=== PATIENT | female | born 1990 | race African-American/Black ===

== ENCOUNTER 2017-05-23 01:00 | Emergency (ER) | payer MEDICAID ==
[~2017-05-23] VITALS: Ht 167.6 cm; Wt 147.5 kg
[2017-05-23 01:01] VITALS: BP 137/78; PULSE 67; RESP 18; TEMP 98.1; O2SAT 100
--- NOTE | 2017-05-23 02:42 | PD ---
HPI Chief Complaint: Abdominal Pain Time Seen by Provider: 02:40 Travel History International Travel<30 days: No Contact w/Intl Traveler<30days: No Traveled to known affect area: No History of Present Illness HPI C/O LOWER ABD CRAMPY DISCOMFORT, NONRAD, SHARP, /10, NO ALLEVIATING OR AGGRAVATING FACTORS...., NO FEVER/N/V/D/CASTILLO/CP AT THIS POINT. ALL: NKDA PMHX: ASTHMA PSHX: 4 C SECTIONS, BTL PFSH Past Medical History Asthma: Yes Diminished Hearing: No Immunizations Current: Yes ?: Not Tubal Ligation: Yes Past Surgical History Section: Yes (X4) Tonsillectomy: Yes Social History Alcohol Use: No Tobacco Use: No Substance Use: No Allergies-Medications (Allergen,Severity, Reaction): Coded Allergies: No Known Allergies (Unverified , 05/23/17) Reported Meds & Prescriptions Reported Meds & Active Scripts Active Zofran Odt (Ondansetron Odt) 4 Mg Tab 4 Mg SL Q6HR PRN Ultram (Tramadol HCl) 50 Mg Tab 50 Mg PO Q4H PRN Review of Systems Except as stated in HPI: all other systems reviewed are Neg Gastrointestinal: Positive: Abdominal Pain Physical Exam Narrative GENERAL: SKIN: Warm and dry. HEAD: Atraumatic. Normocephalic. EYES: Pupils equal and round. No scleral icterus. No injection or drainage. ENT: No nasal bleeding or discharge. Mucous membranes pink and moist. NECK: Trachea midline. No JVD. CARDIOVASCULAR: Regular rate and rhythm. RESPIRATORY: No accessory muscle use. Clear to auscultation. Breath sounds equal bilaterally. GASTROINTESTINAL: Abdomen soft, non-tender, nondistended. MUSCULOSKELETAL: Extremities without clubbing, cyanosis, or edema. No obvious deformities. NEUROLOGICAL: Awake and alert. No obvious cranial nerve deficits. Motor grossly within normal limits. Five out of 5 muscle strength in the arms and legs. Normal speech. PSYCHIATRIC: Appropriate mood and affect; insight and judgment normal. Data Data Last Documented VS Vital Signs Date Time Temp Pulse Resp B/P (MAP) Pulse Ox O2 Delivery O2 Flow Rate FiO2 05/23/17 02:27 05/23/17 01:01 98.1 67 18 100 Orders Orders Urinalysis - C+S If Indicated (05/23/17 02:42) Ct Abd/Pel W/O Iv Contrast (05/23/17 02:42) Iv Access Insert/Monitor (05/23/17 02:42) Ecg Monitoring (05/23/17 02:42) Oximetry (05/23/17 02:42) Sodium Chloride 0.9% Flush (Ns Flush) (05/23/17 02:45) Ed Urine Pregnancytest Poc (05/23/17 02:42) Labs Laboratory Tests Test 05/23/17 02:40 Urine Color LIGHT-YELLOW Urine Turbidity CLEAR Urine pH 6.5 Urine Specific [place] 1.008 Urine Protein NEG mg/dL Urine Glucose (UA) NEG mg/dL Urine Ketones NEG mg/dL Urine Occult Blood NEG Urine Nitrite NEG Urine Bilirubin NEG Urine Urobilinogen LESS THAN 2.0 MG/DL Urine Leukocyte Esterase NEG Urine WBC LESS THAN 1 /hpf Urine Squamous Epithelial Cells 1 /hpf Microscopic Urinalysis Comment CULT NOT INDICATED MDM Medical Decision Making Medical Screen Exam Complete: Yes Emergency Medical Condition: Yes Medical Record Reviewed: Yes Differential Diagnosis UTI V COLITIS V PREG RELATED ISSUES Narrative Course UPON EVALUATION, NEG HCG, UA NEG FOR UTI, HOWEVER CT DID SHOW A LARGE OVARIAN CYST ON RIGHT ADNEXA, DISCUSSED FINDINGS WITH PATIENT AND ADVISED TO FOLLOW UP WITH OBGYN DUE TO PERSISTENT CYST. PATIENT UNDERSTOOD INSTRUCTIONS AND WILL F/U Diagnosis Primary Impression: Ovarian cyst Qualified Codes: N83.201 - Unspecified ovarian cyst, right side Referrals: [facility] Patient Instructions: General Instructions, Ovarian Cyst (DC) Scripts Ondansetron Odt (Zofran Odt) 4 Mg Tab 4 MG SL Q6HR Y for Nausea/Vomiting, #20 TAB 0 Refills Prov: Trace Navas MD 05/23/17 Tramadol (Ultram) 50 Mg Tab 50 MG PO Q4H Y for PAIN, #20 TAB 0 Refills Prov: Trace Navas MD 05/23/17 Disposition: 01 DISCHARGE HOME Condition: Stable Trace Navas MD May 23, 2017 02:42
[2017-05-23] MEDS ORDERED: SODIUM CHLORIDE 0.9% FLUSH 10 ML FLUSH IV FLUSH PRN (02:45)
[2017-05-23 03:11] LABS: BLOOD, URINE NEG (NEG); GLUCOSE,URINE NEG (NEG); KETONE, URINE NEG (NEG); NITRITE,URINE NEG (NEG); PH, URINE 6.5 (5.0-8.5); SQUAMOUS EPITHELIAL CELL URINE 1 /hpf (0-5); URINE COLOR LIGHT-YELLOW (YELLW/STRAW)
[2017-05-23 03:12] LABS: COMMENT (UR) CULT NOT INDICATED; CULTURE IF INDICATED CULT NOT INDICATED
--- NOTE | 2017-05-23 03:22 | RADRPT ---
EXAM DATE/TIME: 05/23/2017 03:07 [place] COMPARISON: No previous studies available for comparison. INDICATIONS : Abdomen pain past 5 days. ORAL CONTRAST: No oral contrast ingested. RADIATION DOSE: 21.30 CTDIvol (mGy) ; Patient body habitus MEDICAL HISTORY : None SURGICAL HISTORY : Tubal ligation. section. ENCOUNTER: Initial ACUITY: 4 - 6 days PAIN SCALE: 6/10 LOCATION: Bilateral abdomen TECHNIQUE: Volumetric scanning of the abdomen and pelvis was performed. Using automated exposure control and ad justment of the mA and/or kV according to patient size, radiation dose was kept as low as reasonably achievable to obtain optimal diagnostic quality images. DICOM format image data is available electro nically for review and comparison. FINDINGS: Linear scarring right middle lobe. Lung bases otherwise clear. No acute findings in the liver, spleen, adrenals, kidneys or pancreas. No calcified gallstones or nicole sagar dilatation. There is a fat containing ventral hernia measuring about 5.3 cm in diameter. There is a 5.6 cm right adnexal lesion, circumscribed. This may be exophytic from the posterior uteru s or possibly an ovarian lesion. No other pelvic masses. No free fluid or free air. No bowel obstruct ion. CONCLUSION: 1. 5.6 cm right adnexal lesion. Differential diagnosis includes a exophytic fibroid or right ovarian lesion, possibly hemorrhagic or complex ovarian cyst. Kobe Holland MD on May 23, 2017 at 3:16 Board Certified Radiologist. This report was verified electronically.
[2017-05-23] MEDS ORDERED: ZOFR4TAB3 SL (04:32)
[2017-05-23] MEDS ORDERED: ULTR50TA5 PO (04:32)
== END 2017-05-23 05:14 | disposition home or self-care (01) ==
LOC: NEPC 01:00
DX: N83.201 Unspecified ovarian cyst, right side (principal); J45.909 Unspecified asthma, uncomplicated
CPT/HCPCS: 74176; 81001; 84703; 99284

== ENCOUNTER 2017-09-28 18:31 | Emergency (ER) | payer MEDICAID ==
[~2017-09-28] VITALS: Ht 167.6 cm; Wt 140.0 kg
[~2017-09-28 18:31] MED LIST: TRAM50 PO; ZOFR4TAB3 SL
[2017-09-28 18:33] VITALS: BP 156/68; PULSE 81; RESP 22; TEMP 98.5; O2SAT 100
--- NOTE | 2017-09-28 20:32 | PD ---
HPI Chief Complaint: Cold / Flu Symptoms Time Seen by Provider: 20:32 Travel History International Travel<30 days: No Contact w/Intl Traveler<30days: No Traveled to known affect area: No History of Present Illness HPI 27-year-old female came to the emergency room with history of nausea, vomiting, body aches, lightheadedness and just not feeling well for the past 2-3 days. Patient is otherwise a relatively healthy individual. Vital signs were stable. There was an influenza test done out in triage which was negative. Patient took some Tylenol she says prior to coming in. She does not appear to be in significant distress. There have been some sick people at work. Patient says that she did not go to work yesterday and today because of sickness. [facility] Past Medical History Narrative Medical List of her past medical, surgical, social and family history is reviewed from the nursing note. Asthma: Yes Diminished Hearing: No Immunizations Current: Yes Tetanus Vaccination: Never Vaccinated Influenza Vaccination: No ?: Not Tubal Ligation: Yes Past Surgical History Section: Yes (X4) Tonsillectomy: Yes Social History Alcohol Use: Yes (socially) Tobacco Use: No Substance Use: No Allergies-Medications (Allergen,Severity, Reaction): Coded Allergies: No Known Allergies (Unverified Adverse Reaction, Unknown, 09/28/17) Comments No known drug allergies. Reported Meds & Prescriptions Reported Meds & Active Scripts Active Zofran Odt (Ondansetron Odt) 4 Mg Tab 4 Mg SL Q6HR PRN Ultram (Tramadol HCl) 50 Mg Tab 50 Mg PO Q4H PRN Narrative Medication List of her home medications reviewed from the nursing notes. Review of Systems Except as stated in HPI: all other systems reviewed are Neg General / Constitutional: Positive: Fever Gastrointestinal: Positive: Nausea, Vomiting Musculoskeletal: Positive: Myalgias Physical Exam Narrative GENERAL: Awake, alert, morbidly obese, no obvious distress SKIN: Focused skin assessment warm/dry. HEAD: Atraumatic. Normocephalic. EYES: Pupils equal and round. No scleral icterus. No injection or drainage. ENT: No nasal bleeding or discharge. Mucous membranes pink and moist. NECK: Trachea midline. No JVD. CARDIOVASCULAR: Regular rate and rhythm. No murmur appreciated. RESPIRATORY: No accessory muscle use. Clear to auscultation. Breath sounds equal bilaterally. GASTROINTESTINAL: Abdomen soft, non-tender, nondistended. Hepatic and splenic margins not palpable. MUSCULOSKELETAL: No obvious deformities. No clubbing. No cyanosis. No edema. NEUROLOGICAL: Awake and alert. No obvious cranial nerve deficits. Motor grossly within normal limits. Normal speech. PSYCHIATRIC: Appropriate mood and affect; insight and judgment normal. Data Data Last Documented VS Vital Signs Date Time Temp Pulse Resp B/P (MAP) Pulse Ox O2 Delivery O2 Flow Rate FiO2 09/28/17 20:56 09/28/17 18:33 98.5 81 22 100 Room Air Orders Orders Influenzae A/B Antigen (09/28/17 18:40) Ed Discharge Order (09/28/17 20:51) MDM Medical Decision Making Medical Screen Exam Complete: Yes Emergency Medical Condition: Yes Medical Record Reviewed: Yes Differential Diagnosis Viral illness, influenza Narrative Course 8:53 PM patient will be discharged home with instructions. In my opinion this is a viral illness, NOS. Procedures EKG Prior to Arrival: No Diagnosis Primary Impression: Viral illness Additional Impression: Morbid obesity Referrals: Primary Care Physician Departure Forms: Tests/Procedures, Work Release Enter return to work date: Oct 01, 2017 Additional Instructions: Drink lots of fluids to stay hydrated. Tylenol/Motrin/ibuprofen for fever. Return to ER if condition worsens or any other new concerns. Otherwise follow- up with her primary care. Med/Other Pt SpecificInfo: No Change to Meds Disposition: 01 DISCHARGE HOME Condition: Stable Rian Anderson MD Sep 28, 2017 20:32
== END 2017-09-28 20:58 | disposition home or self-care (01) ==
LOC: NEPD 18:31
DX: B34.9 Viral infection, unspecified (principal); E66.01 Morbid (severe) obesity due to excess calories; J45.909 Unspecified asthma, uncomplicated
CPT/HCPCS: 87804; 99283

== ENCOUNTER 2017-10-31 22:38 | Emergency (ER) | payer MEDICAID ==
[~2017-10-31] VITALS: Ht 167.6 cm; Wt 145.0 kg
[2017-10-31 23:09] VITALS: BP 177/92; PULSE 70; RESP 18; TEMP 99.3; O2SAT 100
== END 2017-10-31 23:50 | disposition left against medical advice (07) ==
LOC: NED 22:38
DX: R68.89 Other general symptoms and signs (principal)
CPT/HCPCS: 99281